=== PATIENT | female | born 1995 | race African-American/Black ===

== ENCOUNTER 2021-05-24 19:06 | Emergency (ER) | payer BC ==
[~2021-05-24] VITALS: Ht 157.5 cm; Wt 59.9 kg
[2021-05-24] MEDS ORDERED: AMOXICILLIN 50500 MG PO (20:29)
[2021-05-24 21:02] VITALS: BP 121/57
== END 2021-05-24 21:02 | disposition home or self-care (01) ==
LOC: ER 19:06
DX: J02.0 Streptococcal pharyngitis (principal)